=== PATIENT | male | born 1960 | race Caucasian/White ===

== ENCOUNTER 2020-04-10 08:42 | Inpatient (IN) | payer SELFPAY ==
[2020-04-10] VITALS (10 sets, daily range): BP systolic 110–153; BP diastolic 73–103; PULSE 79–103; RESP 16–24; TEMP 36.6–36.9; O2SAT 92–99; BMI 33.5
--- NOTE | 2020-04-10 08:53 | W.ED.SOB ---
HPI - SOB/Dyspnea General: Chief Complaint: Shortness of Breath/Dyspnea Stated Complaint: chest pain Time Seen by Provider: 04/10/20 08:46 History of Present Illness: HPI Narrative: Patient states he began to become severely shortness of breath approximately 4:00 this morning. Patient states she has no known history of COPD or congestive heart failure but that episodes like this happen frequently, most often in conjunction with weather changes. MD elicited complaint: shortness of breath Onset (ago): hour(s) Timing: constant and progressively worsening Severity: severe Exacerbating factors: lying flat and exertion Relieving factors: nothing Review of Systems General: Reports: 10 or more systems reviewed and unremarkable except in HPI and below Resp: Reports: dyspnea PFSH ED PFSH: Social History Smoking and tobacco status: never smoked Physical Exam Const: COMMON NORMALS: patient oriented x3 and alert HENMT: COMMON NORMALS: normocephalic and atraumatic HEAD & SCALP: normocephalic and atraumatic Neck/C-Spine: COMMON NORMALS: no meningeal signs and no JVD Resp: COMMON NORMALS: normal respiratory effort EFFORT & INSPECTION: Yes respiratory distress, No retractions and No uses accessory muscles AUSCULTATION: rales Cardio: COMMON NORMALS: no JVD, regular rate and regular rhythm RATE: regular rate RHYTHM: regular rhythm GI: COMMON NORMALS: Normal to inspection, nondistended, normoactive bowel sounds present Extremity: COMMON NORMALS: normal to inspection and full ROM GENERAL: Yes edema Neuro: COMMON NORMALS: patient oriented x3 SENSORIUM/ORIENTATION: Yes alert MENINGEAL SIGNS: Yes no meningeal signs Skin: COMMON NORMALS: no rashes or lesions noted, no jaundice and no mottling GENERAL SKIN EXAM: no rashes or lesions noted Course Vital Signs: Vital signs: Vital Signs Pulse Rate 89 04/10/20 10:06 Respiratory Rate 16 04/10/20 10:06 Blood Pressure 148/98 04/10/20 10:06 Pulse Oximetry 94 04/10/20 10:06 MDM - SOB/Dyspnea Lab Data: Labs: Lab Results 04/10/20 04/10/20 04/10/20 Range/Units 09:00 09:00 09:00 WBC 9.0 (4.0-10.0) 10^3/ uL RBC 4.63 (4.1-5.3) 10^6/u L Hgb 13.1 (11.7-16.6) g/dL Hct 41.0 L (42.0-52.0) % MCV 88.6 (80-94) fL MCH 28.3 (28.0-34.0) pg MCHC 32.0 (30.0-36.0) g/dL RDW 15.4 H (12.1-15.1) % Plt Count 315 (130-400) 10^3/c mm MPV 10.4 (7.4-10.4) fL Neut % (Auto) 74.2 % Lymph % (Auto) 18.3 % [place] % (Auto) 4.9 % Eos % (Auto) 2.1 % Baso % (Auto) 0.3 % Neut # (Auto) 6.6 (1.8-7.7) 10^3/u L Lymph # (Auto) 1.6 (0.8-4.8) 10^3/u L [place] # (Auto) 0.4 (0.2-0.9) 10^3/u L Eos # (Auto) 0.2 (0.0-0.8) 10^3/u L Baso # (Auto) 0.0 (0.0-0.1) 10^3/u L Nucleated RBC % (a uto) 0 % Nucleated RBCs # 0.0 /100WBC Sodium 143 (136-145) mmol/L Potassium 4.0 (3.5-5.1) mmol/L Chloride 107 (98-107) mmol/L Carbon Dioxide 22 (22-29) mmol/L Anion Gap 18.0 (5-19) BUN 19 (6-20) mg/dL Creatinine 1.3 H (0.7-1.2) mg/dL GFR Calculation 56.7 L (90-130) mL/min Glucose 105 (65-115) mg/dL Calculated Osmolal ity 293 (285-295) mOsm/k g Lactic Acid 1.1 (0.5-2.2) mmol/L Calcium 9.6 (8.5-10.5) mg/dL Total Bilirubin 2.2 H (0.15-1.2) mg/dL AST 19 (0-40) U/L ALT 19 (0-41) U/L Alkaline Phosphata se 86 (40-130) IU/L Troponin T Baselin e (0-15) ng/mL Troponin T 120 Min [place] (0-15) ng/mL NT-Pro-B Natriuret Pep 1368 H (0-125) pg/mL Total Protein 6.8 (6.6-8.7) g/dL Albumin 4.8 (3.5-5.2) g/dL Globulin 2.0 (1.3-4.6) g/dL 04/10/20 04/10/20 Range/Units 09:00 10:47 WBC (4.0-10.0) 10^3/ uL RBC (4.1-5.3) 10^6/u L Hgb (11.7-16.6) g/dL Hct (42.0-52.0) % MCV (80-94) fL MCH (28.0-34.0) pg MCHC (30.0-36.0) g/dL RDW (12.1-15.1) % Plt Count (130-400) 10^3/c mm MPV (7.4-10.4) fL Neut % (Auto) % Lymph % (Auto) % [place] % (Auto) % Eos % (Auto) % Baso % (Auto) % Neut # (Auto) (1.8-7.7) 10^3/u L Lymph # (Auto) (0.8-4.8) 10^3/u L [place] # (Auto) (0.2-0.9) 10^3/u L Eos # (Auto) (0.0-0.8) 10^3/u L Baso # (Auto) (0.0-0.1) 10^3/u L Nucleated RBC % (a uto) % Nucleated RBCs # /100WBC Sodium (136-145) mmol/L Potassium (3.5-5.1) mmol/L Chloride (98-107) mmol/L Carbon Dioxide (22-29) mmol/L Anion Gap (5-19) BUN (6-20) mg/dL Creatinine (0.7-1.2) mg/dL GFR Calculation (90-130) mL/min Glucose (65-115) mg/dL Calculated Osmolal ity (285-295) mOsm/k g Lactic Acid (0.5-2.2) mmol/L Calcium (8.5-10.5) mg/dL Total Bilirubin (0.15-1.2) mg/dL AST (0-40) U/L ALT (0-41) U/L Alkaline Phosphata se (40-130) IU/L Troponin T Baselin e 27 H (0-15) ng/mL Troponin T 120 Min [place] 20.06 H (0-15) ng/mL NT-Pro-B Natriuret Pep (0-125) pg/mL Total Protein (6.6-8.7) g/dL Albumin (3.5-5.2) g/dL Globulin (1.3-4.6) g/dL Discharge Plan Discharge Patient Disposition: Admitted As Inpatient Clinical Impression: Acute exacerbation of chronic obstructive airways disease Congestive heart failure Qualifiers: Heart failure type: unspecified Heart failure chronicity: acute on chronic Qualified Code(s): I50.9 - Heart failure, unspecified Condition: Fair Referrals: Jered Tejeda MD [Family Provider] - Coding Level of Care Code ED 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
--- NOTE | 2020-04-10 08:58 | XR_ITS ---
WS: [id number] PORTABLE CHEST HISTORY: sob COMPARISON: 04/28/2019 Very slight hyperexpansion of the lungs. Better aeration as compared to the prior study. RIGHT hemidi aphragm is less elevated. There is very minimal pulmonary congestion as compared to the prior study. Small LEFT pleural effusion. Cardiac size: Mildly enlarged cardiac silhouette. Mediastinum/Aorta: Normal mediastinum. No osseous abnormality seen. XR/XR chest 1V portable [id number] IMPRESSION: 1. Development of very minimal pulmonary congestion and cardiomegaly. 2. Small LEFT pleural effusion effusion.
--- NOTE | 2020-04-10 08:59 | ECG_ITS ---
Measurements Intervals [place] Rate: 98 P: 42 NM: 205 QRS: 36 QRSD: 125 T: 67 QT: 359 QTc: 460 SINUS RHYTHM INDETERMINATE AXIS MODERATE INTRAVENTRICULAR CONDUCTION DELAY [110+ ms QRS DURATION] Compared to ECG 04/28/2019 14:56:13 Indeterminate axis now present Intraventricular conduction delay now present Sinus bradycardia no longer present Atrial abnormality no longer present Myocardial infarct finding no longer present Electronically Signed On 04-10-2020 22:00:19 CDT by Valentine Grubbs M.D. [id number]
[2020-04-10] MEDS: ipratropium-albuterol 3 mL Neb INHALATION (09:09)
[2020-04-10 09:11] LABS: Basophils % 0.3 %; Eosinophils # 0.2 10^3/uL (0.0-0.8); Eosinophils % 2.1 %; Hemoglobin 13.1 g/dL (11.7-16.6); Lymphocytes # 1.6 10^3/uL (0.8-4.8); Lymphocytes % 18.3 %; Mean Corpuscular Hemoglobin 28.3 pg (28.0-34.0); Mean Corpuscular Volume 88.6 fL (80-94); Mean Platelet Volume 10.4 fL (7.4-10.4); Monocytes # 0.4 10^3/uL (0.2-0.9); Monocytes % 4.9 %; Neutrophils # 6.6 10^3/uL (1.8-7.7); Neutrophils % 74.2 %; Nucleated Red Blood Cells % 0 %; Platelet Count 315 10^3/cmm (130-400); Red Blood Count 4.63 10^6/uL (4.1-5.3); Red Cell Distribution Width 15.4 % (12.1-15.1)
[2020-04-10 09:27] LABS: Lactic Sepsis W/Reflex 1.1 mmol/L (0.5-2.2)
[2020-04-10 09:30] LABS: Troponin(5th) Baseline 27 ng/mL (0-15)
[2020-04-10 09:39] LABS: Alanine Aminotransferase 19 U/L (0-41); Albumin Level 4.8 g/dL (3.5-5.2); Alkaline Phosphatase 86 IU/L (40-130); Aspartate Amino Transferase 19 U/L (0-40); Blood Urea Nitrogen 19 mg/dL (6-20); Calcium 9.6 mg/dL (8.5-10.5); Carbon Dioxide 22 mmol/L (22-29); Chloride 107 mmol/L (98-107); Glomerular Filtration Rate 56.7 mL/min (90-130); Glucose 105 mg/dL (65-115); NT Pro B Type Natriuretic Pept 1368 pg/mL (0-125); Osmolality Calculated 293 mOsm/kg (285-295); Sodium 143 mmol/L (136-145); Total Bilirubin 2.2 mg/dL (0.15-1.2); Total Protein 6.8 g/dL (6.6-8.7)
--- NOTE | 2020-04-10 10:08 | PC.NURSE ---
NO ACUTE DISTRESS, LOWERED HEAD OF BED. DENIES ANY WANTS OR NEEDS. CONTINUE TO MONITOR.
--- NOTE | 2020-04-10 10:59 | ECG_ITS ---
Measurements Intervals [place] Rate: 87 P: 57 [place]: 203 QRS: 253 QRSD: 124 T: 69 QT: 367 QTc: 443 SINUS RHYTHM WITH FIRST DEGREE AV BLOCK POSSIBLE LEFT ATRIAL ENLARGEMENT [-0.1mV P WAVE IN V1/V2] INDETERMINATE AXIS MODERATE INTRAVENTRICULAR CONDUCTION DELAY [110+ ms QRS DURATION] Compared to ECG 04/28/2019 14:56:13 Indeterminate axis now present Intraventricular conduction delay now present Sinus bradycardia no longer present Myocardial infarct finding no longer present Electronically Signed On 04-10-2020 22:10:59 CDT by Valentine Grubbs M.D. [id number]
[2020-04-10 11:15] LABS: Troponin 5 2HR 20.06 ng/mL (0-15)
[2020-04-10 11:16] LABS: Troponin 5 2HR Delta -6.94 ABS# (0-10)
--- NOTE | 2020-04-10 13:13 | US_ITS ---
WS: [id number] RIGHT UPPER QUADRANT ULTRASOUND HISTORY: hyperbilirubinemia COMPARISON: None available. Liver: 11.5 cm in length. Normal size and echogenicity with no intrahepatic dilatation. No mass. Gallbladder: Normally distended gallbladder with no stones or wall thickening. CBD: 0.5 cm Pancreas: Not visualized. Right kidney: 11.1 cm in length. Normal echogenicity with no mass or hydronephrosis. Aorta and IVC: Unremarkable. No ascites. US/US gall bladder [id number] IMPRESSION: 1. Normal gallbladder. 2. Pancreas not visualized.
--- NOTE | 2020-04-10 13:13 | USCV_ITS ---
Lalo Denson Age: 60 Gender: M : 1960 Exam Date: 04/10/2020 14:32 Ordering Phys: Elvia Rowan DO Technologist: Heraclio Salgado [place]am Location[place] [facility] [place]ication: CHEST PAIN BP: 139 / 73 HR: 94 Rhythm: Sinus Technical Quality: Fair MEASUREMENTS (Male / Female) Normal Values 2D ECHO LV Diastolic Diameter PLAX 7.8 cm 4.2 - 5.9 / 3.9 - 5.3 cm LV Systolic Diameter PLAX 6.9 cm IVS Diastolic Thickness 1.1 cm 0.6 - 1.0 / 0.6 - 0.9 cm IVS Systolic Thickness 1.3 cm LVPW Diastolic Thickness 0.8 cm 0.6 - 1.0 / 0.6 - 0.9 cm LVPW Systolic Thickness 1.2 cm LVOT Diameter 2.7 cm LV Ejection Fraction 2D Teich 24.2 % LV Ejection Fraction MOD 2C 41.9 % LV Ejection Fraction 2C AL 42.2 % LA Diameter 4.9 cm LA Width 4.7 cm LA Height 5.9 cm RA Width 5.0 cm RA Height 5.3 cm M-MODE Aortic Annulus Diameter 3.5 cm LA Ao Ratio MM 1.4 MV E Point Septal Separation 2.7 cm DOPPLER AV Peak Velocity 106.0 cm/s LVOT Peak Velocity 99.0 cm/s AV Area Cont Eq vti 4.9 cm squared AV Area Cont Eq pk 5.3 cm squared MV Area PHT 5.0 cm squared Mitral E to A Ratio 1.6 MV E' Velocity 10.0 cm/s Mitral E to MV E' Ratio 13.0 Mitral E to LV E' Lateral Ratio 9.8 Mitral E to LV E' Septal Ratio 19.5 TR Peak Velocity 121.0 cm/s TR Peak Gradient 5.9 mmHg TV Peak E Velocity 95.0 cm/s FINDINGS Left Ventricle Severely increased left ventricular cavity size. Severely decreased left ventricular systolic function. Left ventricular ejection fraction is estimated at 15 %. Severe global hypokinesis. Abnormal diastolic function. Abnormal septal motion consistent with conduction abnormality. Right Ventricle Normal right ventricular size and systolic function. Right Atrium Mildly increased right atrial size. Left Atrium Moderately increased left atrial size. Mitral Valve Mildly thickened mitral valve. Moderate mitral valve regurgitation. Aortic Valve Structurally normal trileaflet aortic valve. No aortic valve stenosis. No aortic valve regurgitation. Tricuspid Valve Structurally normal tricuspid valve. Pulmonic Valve Pulmonic valve not well visualized. Pericardium No pericardial effusion. Aorta Normal size aortic root and proximal ascending aorta. CONCLUSIONS 1. Severely increased left ventricular cavity size. Severely decreased left ventricular systolic function. Left ventricular ejection fraction is estimated at 15 %. Severe global hypokinesis. Abnormal diastolic function. 2. Normal right ventricular size and systolic function. 3. Moderately increased left atrial size. 4. Moderate mitral valve regurgitation. 5. No prior similar studies to compare. Valentine Grubbs MD (Electronically Signed) Final Date: 10 Apr 2020 17:43 S
--- NOTE | 2020-04-10 13:17 | PM.HP ---
Providers/Chief Complaint Admitting Physician: Elvia Rowan DO Primary Care Provider: None Chief Complaint: chest pain History of Present Illness Lalo Denson is a 60 year old male with a past medical history of systolic congestive heart failure that presented to the emergency department today for increasing shortness of breath. Patient reports that he was previously seen at [facility] in [place] and all of his care was at their facility. He stated that him and his moved here in 2017 and he has not established care with a primary care provider or micropaleontologist since that time. He reported that in 2013 he had a heart attack and required 2 stents to be placed. He stated that after that he had an ejection fraction of around 16%. He was followed closely by cardiology and also at the congestive heart failure clinic in [place]. He stated that he was on Entresto along with Coreg and Lasix and 2 other medications that he cannot recall at this time. He stated that he had medication refills until October 2019 at which time he ran out of medications. Patient has been off of medications for the past 6 months. He reported that he intermittently has shortness of breath and feels fluid overloaded, came into the ER today due to similar concerns. He stated that he has been out of insurance so therefore cannot fill any of his medications or establish care. Patient was seen and evaluated in the emergency department due to concern for fluid overloaded he was admitted for further evaluation and treatment. Review of Systems Const: Denies: fever(s) or chills Eyes: Denies: change in vision ENMT: Denies: nasal congestion Card: Denies: chest pain, palpitations or edema Resp: Reports: dyspnea and non-productive cough; Denies: productive cough or hemoptysis GI: Denies: abdominal pain, nausea, vomiting, diarrhea, constipation, hematochezia or melena : Denies: dysuria or hematuria Musc: Denies: extremity pain or muscle cramps Skin/Breast: Denies: rash or new lesions Neuro: Denies: headache(s) or dizziness Psych: Denies: anxiety or depression Endo: Denies: polyuria or hot flashes [place]/Lymph: Denies: easy bruising or easy bleeding Medications/Allergies Home Medications Medication Instructions Recorded Confirmed Last Taken Type Vitamin D3 1 cap PO DAILY 04/10/20 04/10/20 04/09/20 History aspirin-caffeine [BC Pain Relief] 1 ea PO BID PRN 04/10/20 04/10/20 04/09/20 10:00 History lysine [L-Lysine] 1,000 mg PO Q6H PRN 04/10/20 04/10/20 Unknown History magnesium salicylate-caffeine 1 tab PO DAILY 04/10/20 04/10/20 04/09/20 History [Diurex] multivitamin [Multiple Vitamins] 1 tab PO DAILY 04/10/20 04/10/20 04/09/20 History Allergies Allergy/AdvReac Type Severity Reaction Status Date / Time clindamycin Allergy ALGY-Rash Verified 04/10/20 09:01 Penicillins Allergy ALGY-Hives Verified 04/10/20 09:01 Sulfa (Sulfonamide Allergy ALGY-Rash Verified 04/10/20 09:01 Antibiotics) PFSH Acute PFSH: Medical History (Updated 04/10/20 @ 13:21 by Elvia Rowan DO) Coronary artery disease History of coronary angiogram With stent placement x2 in February 2014. 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 Vitals/I&O/Wt Last Vital Signs Temp 98.5 F 04/10/20 13:07 Pulse 81 04/10/20 13:07 Resp 18 04/10/20 13:07 BP 152/90 04/10/20 13:07 Pulse Ox 92 04/10/20 13:07 Weight last 48 hrs Weight 108.862 kg Physical Exam Const: COMMON NORMALS: patient oriented x3 and alert GENERAL APPEARANCE: cooperative ORIENTATION/CONSCIOUSNESS: Yes awake, Yes oriented to person, Yes oriented to place and Yes oriented to time HENMT: COMMON NORMALS: normocephalic and atraumatic HEAD & SCALP: normocephalic and atraumatic Eye: COMMON NORMALS: Equal, round and reactive pupils present PUPIL: Yes Equal, round and reactive pupils present Neck/C-Spine: COMMON NORMALS: supple GENERAL: Yes normal visual inspection Resp: EFFORT & INSPECTION: Yes able to speak in complete sentences AUSCULTATION: crackles Laterality: bilateral, no rhonchi and no wheezes Cardio: COMMON NORMALS: regular rate, regular rhythm and No murmurs present (Cardio) RATE: regular rate RHYTHM: regular rhythm GI: COMMON NORMALS: Soft to palpation and non-tender INSPECTION: No abdominal distension AUSCULTATION: Yes normoactive bowel sounds PALPATION: Yes Soft to palpation Extremity: COMMON NORMALS: no clubbing, cyanosis or edema and no calf tenderness Neuro: COMMON NORMALS: patient oriented x3, CN's II-XII intact bilaterally, moves all extremities and no focal motor deficits SENSORIUM/ORIENTATION: Yes alert, Yes oriented to person, Yes oriented to place and Yes oriented to time SPEECH: speech normal Psych: COMMON NORMALS: mental status grossly normal and cooperative Skin: COMMON NORMALS: no rashes or lesions noted GENERAL SKIN EXAM: no rashes or lesions noted Data : 04/10/20 09:00 04/10/20 09:00 Micro: Microbiology 04/10/20 09:05 Blood Culture - Preliminary Blood SPECIMEN COLLECTED 04/10/20 09:00 Blood Culture - Preliminary Blood SPECIMEN COLLECTED CXR: I personally reviewed and interpreted this imaging study as follows: Radiologist's impression: IMPRESSION: 1. Development of very minimal pulmonary congestion and cardiomegaly. 2. Small LEFT pleural effusion effusion. A&P Assessment and plan (1) Acute exacerbation of CHF (congestive heart failure): Acute exacerbation of systolic CHF Patient has been followed at the cardiology and congestive heart failure clinic at [facility] in [facility]. Has ran out of prescription refills and has not had any refill since October 2019 Patient acutely fluid overloaded at this time placed on observation for diuresis Monitor strict intake and output as well as daily weights Previously reported that his echocardiogram showed an LVEF of 16% but it was up to 35% on his most recent test which was a couple of years ago We will repeat echocardiogram and obtain record request from out lying facility Previously on Entresto, does not have insurance currently therefore will start on low-dose ROB inhibitor, Coreg, Lasix, consider addition of Aldactone if needed Status: Acute (2) Systolic congestive heart failure: Plan as above Status: Acute (3) Coronary artery disease: With a history of stent x2, currently only taking aspirin at home Telemetry with serial EKG and troponin We will continue aspirin, start on statin, continue on Coreg, continue ORB inhibitor Lipid panel in the morning Status: Acute (4) Hyperbilirubinemia: Patient has had hyperbilirubinemia in the past, however denies any cause. Will check hepatitis panel. AST and ALT are within normal limits. Will check direct and indirect bilirubin. Discussed this with patient and will further evaluate with right upper quadrant ultrasound. Patient does not have any tenderness in the abdomen, no symptoms. He does have a mother who had cirrhosis from Kandi's disease Status: Acute Additional A&P Information Incidental finding on CT head performed on 04/2019: Incompletely visualized right intraparotid 14 mm nodule or lymph node. Significance uncertain. Consider follow-up nonemergent CT soft tissue neck with contrast for further evaluation. Recommend close outpatient follow-up with primary care provider DVT prophylaxis: Lovenox Diet: Cardiac, 2 g sodium restriction CODE STATUS: Full code Attestations Medical Necessity Statement*: Observation due to concern for CHF exacerbation and hyperbilirubinemia. Expected stay less than 2 midnights Coding Level of Care Code Acute Data Migration Lead for Chg Fwd Exam Comprehensive Diagnoses Acute exacerbation of CHF (congestive heart failure) I50.9 Systolic congestive heart failure I50.20 Coronary artery disease I25.10 Hyperbilirubinemia E80.6
[2020-04-10] MEDS: enoxaparin 40 mg/0.4 mL Syringe SUBCUT (13:31)
[2020-04-10] MEDS: lisinopril 2.5 mg Tablet PO (13:31)
[2020-04-10 14:06] LABS: Hepatitis A Antibody IgM Non-Reactive (Nonreactive); Hepatitis B Core AB, Total Non-Reactive (Nonreactive); Hepatitis B Surface AB 3.5 (0-8.5); Hepatitis B Surface Antigen Non-Reactive (Nonreactive); Hepatitis C Virus Antibody Non-Reactive (Nonreactive)
[2020-04-10 14:09] LABS: Total Bilirubin 1.9 mg/dL (0.15-1.2)
[2020-04-10 14:19] LABS: Thyroid Stimulating Hormone 2.15 uIU/mL (0.27-4.20)
--- NOTE | 2020-04-10 14:59 | ECG_ITS ---
Measurements Intervals [place] Rate: 87 P: 36 [place]: 212 QRS: 112 QRSD: 121 T: 69 QT: 374 QTc: 450 SINUS RHYTHM WITH FIRST DEGREE AV BLOCK POSSIBLE LEFT ATRIAL ENLARGEMENT [-0.1mV P WAVE IN V1/V2] INDETERMINATE AXIS MODERATE INTRAVENTRICULAR CONDUCTION DELAY [110+ ms QRS DURATION] Compared to ECG 04/28/2019 14:56:13 First degree AV block now present Indeterminate axis now present Intraventricular conduction delay now present Sinus bradycardia no longer present Myocardial infarct finding no longer present Electronically Signed On 04-10-2020 22:12:22 CDT by Valentine Grubbs M.D. [id number]
[2020-04-10] MEDS: FUROsemide 10 mg/mL SDV 4mL 40 MG IVP (15:16)
[2020-04-10 16:19] LABS: Troponin 5 6HR 22.51 ng/mL (0-15)
[2020-04-10 16:31] LABS: Troponin 5 6HR Delta -4.49 ng/L (0-12)
[2020-04-10] MEDS: carvedilol 3.125 mg Tablet PO (17:21)
[2020-04-10] MEDS: acetaminophen 325 mg Tablet 650 MG PO (21:23)
[2020-04-11 04:00] VITALS: BP 119/79; PULSE 68; RESP 16; TEMP 36.4; O2SAT 92
[2020-04-11 05:44] LABS: Alanine Aminotransferase 17 U/L (0-41); Albumin Level 4.1 g/dL (3.5-5.2); Alkaline Phosphatase 73 IU/L (40-130); Anion Gap 18.2 (5-19); Aspartate Amino Transferase 17 U/L (0-40); Blood Urea Nitrogen 17 mg/dL (6-20); Calcium 8.7 mg/dL (8.5-10.5); Carbon Dioxide 22 mmol/L (22-29); Chloride 104 mmol/L (98-107); Globulin 2.3 g/dL (1.3-4.6); Glomerular Filtration Rate 62.2 mL/min (90-130); Glucose 98 mg/dL (65-115); Osmolality Calculated 288 mOsm/kg (285-295); Potassium 3.2 mmol/L (3.5-5.1); Sodium 141 mmol/L (136-145); Total Bilirubin 2.2 mg/dL (0.15-1.2); Total Protein 6.4 g/dL (6.6-8.7)
[2020-04-11 05:52] LABS: Chol HDL Ratio 5.26 mg/dL (1.0-5.00); Cholesterol 200 mg/dL (0-200); HDL Cholesterol 38 mg/dL (60-100); LDL Cholesterol Calculated 136 mg/dL (50-129); LDL HDL Ratio 3.58 RATIO (0.00-3.22); Triglycerides 132 mg/dL (0-150)
[2020-04-11] MEDS: FUROsemide 10 mg/mL SDV 4mL 40 MG IVP (05:52)
[2020-04-11 07:17] VITALS: BP 109/70; PULSE 76; RESP 20; TEMP 36.4; O2SAT 92
[2020-04-11] MEDS: carvedilol 3.125 mg Tablet PO ×2 (09:21→17:14)
[2020-04-11] MEDS: atorvastatin 40 mg Tablet PO (09:21)
[2020-04-11] MEDS: lisinopril 2.5 mg Tablet PO (09:21)
--- NOTE | 2020-04-11 09:51 | PM.CONSULT ---
Providers/Reason For Consult Consulting Physican/Specialty*: Cardiovascular medicine Reason for Consult*: Congestive heart failure Attending Physician: Elvia Rowan DO Primary Care Provider: Jered Tejeda MD History of Present Illness History of Present Illness Lalo Denson is a 60 year old male who has a history of a cardiomyopathy with a very low ejection fraction. He moved here from [facility] where he had been followed by cardiology service including a congestive heart failure clinic. He moved here in 2016. He is not seen a physician since. He stopped his medications about 6 months ago because he said that he did not have any insurance. He tells me that when he was first diagnosed with a cardiomyopathy was put on lisinopril which short circuited my system . This had to be stopped for some reason. He saw an ad on TV for Entresto and asked the physicians about it and was ultimately put on this drug. He also tells me that he had 2 blood clots which stopped my heart in 2013. He said that this was followed by 2 stents being placed. Over the last several weeks he has noticed an increase in pressure in his abdomen and describes this as fluid collection. He came into the hospital yesterday. He is being diuresed and feels better. His creatinine was 1.5 when he came in and is now down to 1.2. His glomerular filtration rate was 45 mL/min and is now up to 62 mL/min. His creatinine and glomerular filtration rate has improved since he was admitted. His echo shows a global hypokinetic ventricle with an ejection fraction of 15%. Currently he is on Lovenox low-dose, IV Lasix, aspirin, low-dose Coreg and lisinopril with potassium supplementation. Review of Systems General: Reports: 10 or more systems reviewed and unremarkable except in HPI and below Meds/Allergies Home Medications and Allergies Home Medications Medication Instructions Recorded Confirmed Last Taken Type Vitamin D3 1 cap PO DAILY 04/10/20 04/10/20 04/09/20 History aspirin-caffeine [BC Pain Relief] 1 ea PO BID PRN 04/10/20 04/10/20 04/09/20 10:00 History lysine [L-Lysine] 1,000 mg PO Q6H PRN 04/10/20 04/10/20 Unknown History magnesium salicylate-caffeine 1 tab PO DAILY 04/10/20 04/10/20 04/09/20 History [Diurex] multivitamin [Multiple Vitamins] 1 tab PO DAILY 04/10/20 04/10/20 04/09/20 History Allergies Allergy/AdvReac Type Severity Reaction Status Date / Time clindamycin Allergy ALGY-Rash Verified 04/10/20 09:01 Penicillins Allergy ALGY-Hives Verified 04/10/20 09:01 Sulfa (Sulfonamide Allergy ALGY-Rash Verified 04/10/20 09:01 Antibiotics) Current Medications Current Medications Generic Name Dose Route Start Last Admin Trade Name Freq PRN Reason Stop Dose Admin Acetaminophen 650 mg 04/10/20 13:07 04/10/20 21:23 Tylenol PO 650 mg Q6H PRN Administration Mild/Mod Pain Or Temp >/= 101 Atorvastatin Calcium 40 mg 04/11/20 09:00 04/11/20 09:21 Lipitor PO 40 mg DAILY MORGAN Administration Carvedilol 3.125 mg 04/10/20 18:00 04/11/20 09:21 Coreg PO 3.125 mg BID MORGAN Administration Enoxaparin Sodium 40 mg 04/10/20 13:15 04/10/20 13:31 Lovenox SUBCUT 40 mg Q24H MORGAN Administration Furosemide 40 mg 04/11/20 06:00 04/11/20 05:52 Lasix IVP 40 mg Q24H MORGAN Administration Lisinopril 2.5 mg 04/10/20 13:20 04/11/20 09:21 Prinivil PO 2.5 mg DAILY MORGAN Administration Potassium Chloride 20 meq 04/11/20 09:00 04/11/20 09:21 Klor-Con 10 PO 20 meq DAILY MORGAN Administration PFSH Acute PFSH: Medical History (Updated 04/11/20 @ 09:56 by Leon Umaña MD) Chronic kidney disease (CKD) Coronary artery disease History of coronary angiogram With stent placement x2 in February 2014. This was performed at [facility] in [place] Nonischemic cardiomyopathy Systolic congestive heart failure Family History (Updated 04/10/20 @ 13:22 by Elvia Rowan DO) Father CAD (coronary artery disease) Congestive heart failure Mother Cirrhosis Kandi's disease Social History (Updated 04/10/20 @ 13:22 by Elvia Rowan DO) Smoking and tobacco status: never smoked Alcohol intake: current Alcohol intake frequency: holidays/special occasions only Substance/Drug Use: never Household members: spouse Marital status: Vitals/I&O/Wt Last Vital Signs Temp 97.5 F L 04/11/20 07:17 Pulse 76 04/11/20 07:17 Resp 20 H 04/11/20 07:17 BP 109/70 04/11/20 07:17 Pulse Ox 92 04/11/20 07:17 04/10/20 04/11/20 04/11/20 22:59 06:59 14:59 Intake Total 240 / 240 480 / 480 Output Total 1700 / 1700 0 / 1700 Balance -1460 / -1460 0 / -1460 480 / 480 Weight last 48 hrs Weight 255 lb 11.2 oz Weight 240 lb Physical Exam Narrative: EXAM NARRATIVE: GENERAL: In general he looks comfortable at rest HEENT: Exam within normal limits. NECK: Supple without jugular vein distention. The carotid upstroke is normal without bruits. BACK: Exam normal. LUNGS: Clear. HEART: Regular rate and rhythm. ABDOMEN: Benign without organomegaly or tenderness. EXTREMITIES: No edema. NEUROLOGIC: Exam normal. SKIN: Unremarkable. Data Micro: Micro: Microbiology 04/10/20 09:05 Blood Culture - Pr eliminary Blood NEGATIVE TO LINDA E 04/10/20 09:00 Blood Culture - Pr eliminary Blood NEGATIVE TO LINDA E Other Data: Other data: EKG reveals sinus rhythm with an interventricular conduction delay and a left axis deviation. Gallbladder ultrasound normal. Echo reveals a global hypokinetic ventricle ejection fraction 15% with moderate mitral regurgitation. Total bilirubin 2.2. Troponins 26, 20 and 22. A&P Assessment and plan (1) Hyperbilirubinemia: Status: Acute (2) Coronary artery disease: Status: Acute (3) Systolic congestive heart failure: Status: Acute (4) Acute exacerbation of CHF (congestive heart failure): Status: Acute (5) Chronic kidney disease (CKD): Status: Acute (6) Nonischemic cardiomyopathy: Status: Acute Additional A&P Information I do not think he is going to want to afford the Entresto. This is much more expensive than an ROB inhibitor or an angiotensin receptor gi. I think we should continue the medications as currently prescribed and also consider adding Aldactone. As it pertains to the cardiomyopathy this sounds more like a nonischemic cardiomyopathy than a ischemic cardiomyopathy. His ejection fraction is low and the hypokinesis is global instead of segmental. The hyperbilirubinemia may be related to passive congestion though his transaminases are not elevated. I do not think there is a need to work him up for ischemia. He is not having chest pain and his troponins are negative. I think this is a nonischemic global cardiomyopathy with heart failure. I brought up the idea of a LifeVest. He has never heard of this. When I talked to him about it he declined. He had been spoken to about a implantable defibrillator back in [place] but I do not think the discussion went very far. He seems doubtful about putting 1 of those in here due to the expense. So for now we will plan on diuresis and optimization of his medications then as an outpatient he can try to get approval for Entresto from the company and we can have another discussion with him about LifeVest's and implantable defibrillators. Consult Attestations Medical Necessity Statement: Not applicable Coding Level of Care Code New Pt Acute Business Continuity Management Director for Chg Fwd Patient Type New Medical Decision Making Moderate Complexity Diagnoses Hyperbilirubinemia E80.6 Coronary artery disease I25.10 Systolic congestive heart failure I50.20 Acute exacerbation of CHF (congestive heart failure) I50.9 Chronic kidney disease (CKD) N18.9 Nonischemic cardiomyopathy I42.8
--- NOTE | 2020-04-11 09:53 | PM.PN ---
Subjective Subjective: Interval history: Patient awake in bed at time of exam today. He reported improved shortness of breath. Discussed with patient echocardiogram showing LVEF of 15% and recommended close follow-up with cardiology and cardiology consultation. Discussed with patient due to decreased LVEF the possibility of a LifeVest or defibrillator, patient declined at this time. Patient agreed to cardiology consultation Vitals/I&O/Wt Last Vital Signs Temp 97.5 F L 04/11/20 07:17 Pulse 76 04/11/20 07:17 Resp 20 H 04/11/20 07:17 BP 109/70 04/11/20 07:17 Pulse Ox 92 04/11/20 07:17 04/10/20 04/11/20 04/11/20 22:59 06:59 14:59 Intake Total 240 / 240 480 / 480 Output Total 1700 / 1700 0 / 1700 Balance -1460 / -1460 0 / -1460 480 / 480 Weight last 48 hrs Weight 115.984 kg Weight 108.862 kg Physical Exam Const: COMMON NORMALS: patient oriented x3 and alert GENERAL APPEARANCE: cooperative ORIENTATION/CONSCIOUSNESS: Yes awake, Yes oriented to person, Yes oriented to place and Yes oriented to time HENMT: COMMON NORMALS: normocephalic and atraumatic HEAD & SCALP: normocephalic and atraumatic Eye: COMMON NORMALS: Equal, round and reactive pupils present PUPIL: Yes Equal, round and reactive pupils present Neck/C-Spine: COMMON NORMALS: supple GENERAL: Yes normal visual inspection Resp: EFFORT & INSPECTION: Yes able to speak in complete sentences AUSCULTATION: crackles Laterality: bilateral, no rhonchi and no wheezes Cardio: COMMON NORMALS: regular rate, regular rhythm and No murmurs present (Cardio) RATE: regular rate RHYTHM: regular rhythm GI: COMMON NORMALS: Soft to palpation and non-tender INSPECTION: No abdominal distension AUSCULTATION: Yes normoactive bowel sounds PALPATION: Yes Soft to palpation Extremity: COMMON NORMALS: no clubbing, cyanosis or edema and no calf tenderness Neuro: COMMON NORMALS: patient oriented x3, CN's II-XII intact bilaterally, moves all extremities and no focal motor deficits SENSORIUM/ORIENTATION: Yes alert, Yes oriented to person, Yes oriented to place and Yes oriented to time SPEECH: speech normal Psych: COMMON NORMALS: mental status grossly normal and cooperative Skin: COMMON NORMALS: no rashes or lesions noted GENERAL SKIN EXAM: no rashes or lesions noted Data : 04/10/20 09:00 04/11/20 04:44 Micro: Microbiology 04/10/20 09:05 Blood Culture - Preliminary Blood NEGATIVE TO DATE 04/10/20 09:00 Blood Culture - Preliminary Blood NEGATIVE TO DATE A&P Assessment and plan (1) Acute exacerbation of CHF (congestive heart failure): Acute exacerbation of systolic CHF Echocardiogram from this admission shows LVEF of 15% Cardiology, Dr. Umaña, consulted. Appreciate recommendations and assistance in patient's care. Patient wishes to be started back on Entresto as he had good luck with this in the past. Continue with Coreg, IV Lasix, aspirin, statin, started on low-dose ROB inhibitor at this time and will start on Aldactone We will follow-up with cardiology recommendations with the possibility of starting Entresto Status: Acute (2) Systolic congestive heart failure: Plan as above Status: Acute (3) Coronary artery disease: With a history of stent x2, currently only taking aspirin at home Telemetry We will continue aspirin, start on statin, continue on Coreg, continue ROB inhibitor Status: Acute (4) Hyperbilirubinemia: Patient has had hyperbilirubinemia in the past, however denies any cause. Hepatitis panel negative Right upper quadrant ultrasound shows normal gallbladder, pancreas not well visualized We will continue to require outpatient follow-up after discharge Status: Acute Additional A&P Information Incidental finding on CT head performed on 04/2019: Incompletely visualized right intraparotid 14 mm nodule or lymph node. Significance uncertain. Consider follow-up nonemergent CT soft tissue neck with contrast for further evaluation. Recommend close outpatient follow-up with primary care provider DVT prophylaxis: Lovenox Diet: Cardiac, 2 g sodium restriction CODE STATUS: Full code Attestations Medical Necessity Statement*: Further hospitalization due to CHF with severely diminished ejection fraction. Coding Level of Care Code Acute Harness Tier for Umberto Rose Diagnoses Acute exacerbation of CHF (congestive heart failure) I50.9 Systolic congestive heart failure I50.20 Coronary artery disease I25.10 Hyperbilirubinemia E80.6
[2020-04-11] MEDS: aspirin 81 mg EC Tablet PO (10:10)
--- NOTE | 2020-04-11 10:26 | PC.CHAP ---
Pastoral Care Encounter/Spiritual Assessment Type of Contact [] Declined chip separator visit [] Patient/Family/Request visit [] Outpatient visit [] Follow-up visit [] Physician referral [] Code/Alert [x] Routine visit [] Staff referral [] Actively dying [] Patient sleeping [] Family support [] [] Out of room [] Palliative care [] [x] Receiving care in room [] Pre-surgical visit [] Trauma [] Long length of stay [] ICU visit [] Other: Relational/Emotional Strength [] Patient feels connected with others/family/visitors/staff [] Distress [] Loneliness/isolation [] Abandonment Spirituality of Patient [] Person of Gem [] Attends Jehovah'S Witness of their Gem [] Believes in Prayer [] Reads Bible or Sabianist materials [] There are Spiritual issues to be addressed Manager Business Interventions [] Prayer [] Active listening [] Non-anxious presence [] Spiritual/emotional support [] Crisis/trauma care [] Spiritual counseling [] Bereavement support [] Provided bereavement packet [] Provided Bible/devotional materials [] Provided toy/stuffed animal, coloring book to patient or family member [] Provided Communion [] Anointing/[place] [] Salvation [x] Completed spiritual assessment [] Other: Impact on Illness or Injury [] Angry [] Fearful [] Anxious [] Often cries [] Exhaustion [] Unable to work [] Unable to attend lutheran [] Unable to walk/stand [] Unable to read [] Unable to drive [] Unable to eat/drink [] Unable to sleep [] Unable to be with family [] Patient intubated [] Other: Summary Time spent with patient
[2020-04-11 11:40] VITALS: BP 106/68; PULSE 72; RESP 18; TEMP 36.8; O2SAT 94
--- NOTE | 2020-04-11 11:45 | PC.NURSE ---
Dr Rowan said patient doesn't see [facility] and requested that he be removed from being listed as PCP. Utility Manager called admissions [phone], left message.
[2020-04-11] MEDS: spironolactone 25 mg Tablet 12.5 MG PO (12:31)
[2020-04-11] MEDS: enoxaparin 40 mg/0.4 mL Syringe SUBCUT (12:33)
--- NOTE | 2020-04-11 13:38 | PC.NURSE ---
called Admissions [phone] Tejeda removed as PCP. Left message.
--- NOTE | 2020-04-11 13:41 | PC.NURSE ---
Called Admissions [phone], admissions said Dr Tejeda will be removed from patient's PCP physician
[2020-04-11 15:26] VITALS: BP 110/70; PULSE 73; RESP 18; TEMP 36.5; O2SAT 95
[2020-04-11] MEDS: TRAMadol 50 mg Tablet PO (16:39)
[2020-04-11 20:00] VITALS: BP 124/83; PULSE 100; RESP 20; TEMP 36.9; O2SAT 93
[2020-04-11 23:56] VITALS: BP 114/75; PULSE 77; RESP 20; TEMP 36.9; O2SAT 98
[2020-04-12 04:00] VITALS: BP 98/67; PULSE 67; RESP 20; TEMP 36.6; O2SAT 95
[2020-04-12 05:19] VITALS: BP 92/62
[2020-04-12 07:36] VITALS: BP 121/85; PULSE 74; RESP 16; TEMP 36.6; O2SAT 96
[2020-04-12 08:20] LABS: Anion Gap 14.8 (5-19); Blood Urea Nitrogen 16 mg/dL (6-20); Calcium 9.1 mg/dL (8.5-10.5); Carbon Dioxide 24 mmol/L (22-29); Chloride 105 mmol/L (98-107); Glomerular Filtration Rate 68.8 mL/min (90-130); Glucose 104 mg/dL (65-115); Osmolality Calculated 287 mOsm/kg (285-295); Potassium 3.8 mmol/L (3.5-5.1); Sodium 140 mmol/L (136-145)
[2020-04-12] MEDS: lisinopril 2.5 mg Tablet PO (08:21)
[2020-04-12] MEDS: atorvastatin 40 mg Tablet PO (08:21)
[2020-04-12] MEDS: carvedilol 3.125 mg Tablet PO (08:21)
[2020-04-12] MEDS: aspirin 81 mg EC Tablet PO (08:21)
[2020-04-12] MEDS: spironolactone 25 mg Tablet 12.5 MG PO (08:21)
--- NOTE | 2020-04-12 10:29 | PM.PN ---
Subjective Subjective: Interval history: States that he feels better. The pressure in his upper abdomen and midepigastric area is now gone. He feels like he is back to normal. No chest pain Medications: Reviewed: Yes Vitals/I&O/Wt Last Vital Signs Temp 97.8 F 04/12/20 07:36 Pulse 74 04/12/20 07:36 Resp 16 04/12/20 07:36 BP 121/85 04/12/20 07:36 Pulse Ox 96 04/12/20 07:36 04/11/20 04/12/20 04/12/20 22:59 06:59 14:59 Intake Total 480 / 1200 240 / 1440 660 / 660 Balance 480 / 1200 240 / 1440 660 / 660 Weight last 48 hrs Weight 256 lb 1.6 oz Weight 255 lb 11.2 oz Physical Exam Narrative: EXAM NARRATIVE: GENERAL: Neuro he looks and feels well HEENT: Exam within normal limits. NECK: Supple without jugular vein distention. The carotid upstroke is normal without bruits. BACK: Exam normal. LUNGS: Clear. HEART: Regular rate and rhythm. ABDOMEN: Benign without organomegaly or tenderness. EXTREMITIES: No edema. NEUROLOGIC: Exam normal. SKIN: Unremarkable. Data : 04/10/20 09:00 04/12/20 07:52 Micro: Microbiology 04/10/20 09:05 Blood Culture - Preliminary Blood NEGATIVE TO DATE 04/10/20 09:00 Blood Culture - Preliminary Blood NEGATIVE TO DATE A&P Assessment and plan (1) Chronic kidney disease (CKD): Status: Acute (2) Nonischemic cardiomyopathy: Status: Acute (3) Hyperbilirubinemia: Status: Acute (4) Coronary artery disease: Status: Acute (5) Systolic congestive heart failure: Status: Acute (6) Acute exacerbation of CHF (congestive heart failure): Status: Acute Additional A&P Information I think he can safely go home today. He should go home on the medications currently prescribed to include Aldactone, potassium, lisinopril, Lipitor, Coreg, aspirin, Lasix 40 mg p.o. daily. We will work to try to get him back on Entresto. He obviously is uninsured and not able to pay for it. We will try to work that out as an outpatient. He should see us in 4 to 6 weeks as an outpatient. Attestations Medical Necessity Statement*: Not applicable Coding Level of Care Code Established Pt Acute Media Assistant for Chg Fwd Patient Type Established History Detailed Exam Detailed Medical Decision Making Moderate Complexity Diagnoses Chronic kidney disease (CKD) N18.9 Nonischemic cardiomyopathy I42.8 Hyperbilirubinemia E80.6 Coronary artery disease I25.10 Systolic congestive heart failure I50.20 Acute exacerbation of CHF (congestive heart failure) I50.9
--- NOTE | 2020-04-12 10:45 | P.DS_ITS ---
Discharge Providers Date of Admission: 04/11/20 12:09 Date of Discharge: April 12, 2020 Attending Provider at Admission: Elvia Rowan DO Attending Provider at Discharge: Elvia Rowan DO Diagnoses at Discharge Discharge Diagnosis (1) Chronic kidney disease (CKD): Status: Acute (2) Nonischemic cardiomyopathy: Status: Acute (3) Hyperbilirubinemia: Status: Acute (4) Coronary artery disease: Status: Acute (5) Systolic congestive heart failure: Status: Acute (6) Acute exacerbation of CHF (congestive heart failure): Status: Acute Reason for Visit Reason for Visit: Reason For Visit: chest pain Hospital Course Hospital Course: Patient was seen and evaluated in the emergency department noted to have concern for acute CHF exacerbation. Patient reported that he had moved to this area in 2016 and did not establish care with a primary care provider or voltage regulator assembler since that time. He stated that he had medications from his previous provider in [place] but ran out in October 2019. He has been off of medications for over 5 months and has not been taking any type of diuretic therapy. He reported that he has a history of coronary artery disease with a history of stent placement x2 along with congestive heart failure with an LVEF in the past of anywhere from 15 to 30%. He stated that he lost insurance therefore he ran out of medications and did not set up with a primary care provider. Patient was admitted to the hospital had echocardiogram performed which showed an LVEF of 15%. Cardiology was consulted and patient was started on Coreg, aspirin, statin, lisinopril, Aldactone. Patient continued to diurese well with IV Lasix and symptoms improved. Cardiology recommended close outpatient cardiology follow-up and will work to get patient set up with [facility] in the outpatient setting patient verbalized understanding and agreed with plan. On date of discharge patient stated that he was feeling back to his baseline he denied any concerns. He denied any chest pain or shortness of breath. Discussed with him plan for discharge to home and he agreed with plan Physical Exam Const: COMMON NORMALS: patient oriented x3 and alert GENERAL APPEARANCE: cooperative ORIENTATION/CONSCIOUSNESS: Yes awake, Yes oriented to person, Yes oriented to place and Yes oriented to time HENMT: COMMON NORMALS: normocephalic and atraumatic HEAD & SCALP: normocephalic and atraumatic Eye: COMMON NORMALS: Equal, round and reactive pupils present PUPIL: Yes Equal, round and reactive pupils present Neck/C-Spine: COMMON NORMALS: supple GENERAL: Yes normal visual inspection Resp: EFFORT & INSPECTION: Yes able to speak in complete sentences AUSCULTATION: no rhonchi and no wheezes Cardio: COMMON NORMALS: regular rate, regular rhythm and No murmurs present (Cardio) RATE: regular rate RHYTHM: regular rhythm GI: COMMON NORMALS: Soft to palpation and non-tender INSPECTION: No abdominal distension AUSCULTATION: Yes normoactive bowel sounds PALPATION: Yes Soft to palpation Extremity: COMMON NORMALS: no clubbing, cyanosis or edema and no calf tenderness Neuro: COMMON NORMALS: patient oriented x3, CN's II-XII intact bilaterally, moves all extremities and no focal motor deficits SENSORIUM/ORIENTATION: Yes alert, Yes oriented to person, Yes oriented to place and Yes oriented to time SPEECH: speech normal Psych: COMMON NORMALS: mental status grossly normal and cooperative Skin: COMMON NORMALS: no rashes or lesions noted GENERAL SKIN EXAM: no rashes or lesions noted Discharge Data Data Completed and Pending: Completed Studies During Hospitalization Category Date Time Status XR chest 1V naldo ble [id number] Urgent Exams 04/10/20 08:58 Completed CV echo complete* [id number] Routine Ultrasound 04/10/20 13:13 Completed US gall bladder 7 6705 Routine Ultrasound 04/10/20 13:13 Completed Pending at discharge Category Date Time Status Blood Culture Sta t Lab 04/10/20 09:05 Results Labs from last 24 hours 04/12/20 07:52 Sodium 140 Potassium 3.8 Chloride 105 Carbon Dioxide 24 Anion Gap 14.8 BUN 16 Creatinine 1.1 GFR Calculation 68.8 L Glucose 104 Calculated Osmolal ity 287 Calcium 9.1 Vitals: Last Vital Signs Temp 97.8 F 04/12/20 07:36 Pulse 74 04/12/20 07:36 Resp 16 04/12/20 07:36 BP 121/85 04/12/20 07:36 Pulse Ox 96 04/12/20 07:36 Discharge Plan Discharge Patient Disposition: Home, Self-Care Condition: Stable Prescriptions: New atorvastatin 40 mg Tablet 40 mg PO DAILY 30 Days Qty: 30 RF: 0 potassium chloride 10 mEq Tablet Extended Release 20 meq PO DAILY 30 Days Qty: 30 RF: 0 aspirin 81 mg Tablet,Delayed Release (Dr/Ec) 81 mg PO DAILY 30 Days Qty: 30 RF: 0 spironolactone 25 mg Tablet 12.5 mg PO DAILY 30 Days Qty: 30 RF: 0 carvedilol 3.125 mg Tablet 3.125 mg PO BID 30 Days Qty: 60 RF: 0 lisinopril 2.5 mg Tablet 2.5 mg PO DAILY 30 Days Qty: 30 RF: 0 furosemide [Lasix] 40 mg tablet 40 mg PO DAILY 30 Days Qty: 30 RF: 0 Continued Multiple Vitamins Tablet 1 tab PO DAILY RF: 0 L-Lysine 500 mg Tablet 1,000 mg PO Q6H PRN (Reason: FEVER BLISTER) RF: 0 BC Pain Relief 845-65 mg Powder In Packet 1 ea PO BID PRN (Reason: UNKNOWN) RF: 0 Vitamin D3 1 cap PO DAILY RF: 0 Discontinued Diurex 162.5-50 mg Tablet 1 tab PO DAILY RF: 0 Discharge Orders: Discharge Order (Routine); Ordered 04/12/20 Ordered By: Elvia Rowan Referrals: Jakub Carrero MD [Physician] - 4-7 days Leon Umaña MD [Physician] - 1 month Discharge Diet: Cardiac and Low Salt Discharge Activity: Increase activity as tolerated Patient Instructions: Spironolactone (By mouth), Lisinopril (By mouth), Furosemide (By mouth), Carvedilol (By mouth), Heart Failure (DC), CHF Stoplight Activity Restrictions/Additional Instructions: Needs to follow-up with cardiology clinic in 4 to 6 weeks Follow-up with primary care provider to establish care as soon as first appointment is available and 3 to 5 days New prescriptions provided of aspirin, atorvastatin, lisinopril, Coreg, Aldactone, Lasix and potassium supplementation. Monitor daily weights first thing in the morning, for any weight gain more than 2 to 3 pounds in a 24-hour. Call your physician for further instruction Strict intake and output monitoring as well as daily weights as noted above. Limit yourself to less than 1500 mL of fluid per 24-hour period. No more than 2 g of sodium per day Call your physician or present to the ED for any acute illness or concern Discharge Attestations Time Spent in Discharge Care*: greater than 30 min Quality Metrics Clinical Quality Measures During this hospital stay, did patient experience: None Coding Level of Care Code Acute Airplane Cleaner for Umberto Fwd Diagnoses Chronic kidney disease (CKD) N18.9 Nonischemic cardiomyopathy I42.8 Hyperbilirubinemia E80.6 Coronary artery disease I25.10 Systolic congestive heart failure I50.20 Acute exacerbation of CHF (congestive heart failure) I50.9
[2020-04-12 10:55] VITALS: BP 121/85; PULSE 74; RESP 16; TEMP 36.6; O2SAT 96
[2020-04-12 11:19] VITALS: BP 123/85; PULSE 73; RESP 16; TEMP 36.4; O2SAT 96
== END 2020-04-12 11:47 | disposition home or self-care (01) | DRG 292 ==
LOC: ER 11:13 → MEDSURG 11:51
PROVIDERS: Family Medicine; Admitting Provider Family Medicine; Visit Provider Family Medicine
DX: I50.23 Acute on chronic systolic (congestive) heart failure (principal); I42.8 Other cardiomyopathies; N18.9 Chronic kidney disease, unspecified; I25.10 Atherosclerotic heart disease of native coronary artery without angina pectoris; Z95.5 Presence of coronary angioplasty implant and graft; I25.2 Old myocardial infarction; Z91.120 Patient's intentional underdosing of medication regimen due to financial hardship; E80.6 Other disorders of bilirubin metabolism
CPT/HCPCS: 12345; 36415; 71045; 76705; 80048; 80053; 80061; 82247; 82248; 83605; 83880; 84443; 84484; 85025; 86705; 86706; 86709; 86803; 87040; 87340; 93005; 93306; 94640; 96372; 96375; 99283; G0378; J1650; J1940

== ENCOUNTER 2021-11-22 14:29 | Outpatient (CLI) | payer SELFPAY ==
--- NOTE | 2021-11-22 14:34 | USCV_ITS ---
Lalo Denson Age: 61 Gender: M : 1960 Exam Date: 11/22/2021 14:42 Ordering Phys: Jered Tejeda MD Technologist: Exam Location: [facility] [place] Indication: CHF BP: 140 / 80 HR: 43 Rhythm: Sinus Technical Quality: Adequate MEASUREMENTS (Male / Female) Normal Values 2D ECHO LV Diastolic Diameter PLAX 7.0 cm 4.2 - 5.9 / 3.9 - 5.3 cm LV Systolic Diameter PLAX 5.7 cm IVS Diastolic Thickness 1.2 cm 0.6 - 1.0 / 0.6 - 0.9 cm IVS Systolic Thickness 1.5 cm LVPW Diastolic Thickness 1.2 cm 0.6 - 1.0 / 0.6 - 0.9 cm LVPW Systolic Thickness 1.6 cm LVOT Diameter 2.4 cm LV Ejection Fraction 2D Teich 37.4 % LV Ejection Fraction MOD 2C 32.9 % LV Ejection Fraction 2C AL 34.0 % LA Diameter 5.1 cm LA Width 4.7 cm LA Height 7.5 cm RA Width 4.7 cm RA Height 5.9 cm Aorta at Sinotubular Diameter 3.2 cm M-MODE LV Diastolic Diameter MM 8.5 cm 4.2 - 5.9 / 3.9 - 5.3 cm LV Systolic Diameter MM 6.9 cm LV Ejection Fraction MM Teich 36.5 % IVS Diastolic Thickness MM 1.3 cm 0.6 - 1.0 / 0.6 - 0.9 cm IVS Systolic Thickness MM 1.3 cm LVPW Diastolic Thickness MM 1.2 cm 0.6 - 1.0 / 0.6 - 0.9 cm LVPW Systolic Thickness MM 1.9 cm RV Diastolic Diameter MM 1.4 cm Aortic Annulus Diameter 4.0 cm LA Ao Ratio MM 1.1 MV E Point Septal Separation 3.3 cm DOPPLER AV Peak Velocity 109.0 cm/s LVOT Peak Velocity 70.0 cm/s AV Area Cont Eq vti 2.6 cm squared AV Area Cont Eq pk 2.9 cm squared MV Area PHT 5.0 cm squared Mitral E to A Ratio 4.3 MV E' Velocity 56.0 cm/s Mitral E to MV E' Ratio 13.9 Mitral E to LV E' Lateral Ratio 11.7 Mitral E to LV E' Septal Ratio 17.1 TR Peak Velocity 170.0 cm/s TR Peak Gradient 11.6 mmHg TV Peak E Velocity 104.0 cm/s Right Atrial Pressure 3.0 mmHg Pulmonary Artery Systolic Pressu 14.6 mmHg FINDINGS Left Ventricle Moderately increased left ventricular cavity size. Severely decreased left ventricular systolic function. Left ventricular ejection fraction is estimated at 20 %. Grade III/IV diastolic dysfunction (restrictive filling pattern), severely elevated filling pressures. Right Ventricle The right ventricle is normal in size and function. Right Atrium The right atrium is normal in size. Left Atrium The left atrium is normal in size. Mitral Valve Moderately thickened mitral valve. No mitral valve stenosis. Moderate mitral valve regurgitation. Aortic Valve Moderate aortic valve calcification. No aortic valve stenosis. Trace aortic valve regurgitation. Tricuspid Valve Structurally normal tricuspid valve without significant stenosis or regurgitation. Pulmonary artery systolic pressure is normal. Pulmonic Valve Structurally normal pulmonic valve without significant stenosis. There is no pulmonic regurgitation. Pericardium Normal pericardium without effusion. Aorta Normal ascending aorta dimension. CONCLUSIONS 1-Moderately increased left ventricular cavity size. Severely decreased left ventricular systolic function. Left ventricular ejection fraction is estimated at 25 %. Grade III/IV diastolic dysfunction (restrictive filling pattern), severely elevated filling pressures. 2-Moderately thickened mitral valve. No mitral valve stenosis. Moderate mitral valve regurgitation. 3-Moderate aortic valve calcification. No aortic valve stenosis. Trace aortic valve regurgitation. 4-There is no pericardial effusion. 5-Pulmonary artery systolic pressure is within normal limits. 6-Right atrial pressure is around 10 mm of mercury. 7-No significant change since the prior echocardiogram study of 04/10/2020. Kalyn Soriano MD (Electronically Signed) Final Date: 22 November 2021 19:25 S
== END 2021-11-22 14:30 | disposition home or self-care (01) ==
LOC: RAD 14:32
PROVIDERS: PCP Family Medicine; Visit Provider Family Medicine
DX: I50.9 Heart failure, unspecified (principal); I08.0 Rheumatic disorders of both mitral and aortic valves
CPT/HCPCS: 93306

== ENCOUNTER 2023-01-23 15:03 | Emergency (ER) | payer SELFPAY ==
[2023-01-23 15:13] VITALS: BP 126/92; PULSE 103; RESP 18; TEMP 36.6; O2SAT 94
--- NOTE | 2023-01-23 15:20 | XR_ITS ---
WS: [id number] Portable AP upright chest, 01/23/2023 Clinical Data: sob Comparison: Portable chest, 04/10/2020 Findings: No nodules, masses or effusions are seen. The heart remains enlarged. The pulmonary vascula rity is not increased. No pneumonia or pneumothorax is seen. XR/XR chest 1V portable [id number] Impression: No change in cardiomegaly.
[2023-01-23 15:39] VITALS: BP 118/82; PULSE 110; RESP 20; O2SAT 98
--- NOTE | 2023-01-23 15:51 | W.ED.SOB ---
HPI - SOB/Dyspnea General: Chief Complaint: Shortness of Breath/Dyspnea Stated Complaint: feet swelling and chest pain Time Seen by Provider: 01/23/23 15:20 Source: patient Mode of arrival: ambulatory History of Present Illness: HPI Narrative: 62-year-old male with a history of nonischemic cardiomyopathy presents emergency room complaining of worsening swelling of his lower extremities and distention of his abdomen. No fever sweats chills vomiting or diarrhea no abdominal pain no dysuria urgency or frequency. In March 2020 patient had a echocardiogram with an ejection fraction of 15%. More recently November 2021 he had an echo that showed an ejection fraction of 20-25% with grade 3/4 diastolic dysfunction. He has noticed some moderate orthopnea. No chest pain most notably has had an increase in abdominal distention. MD elicited complaint: shortness of breath Pertinent past history: congestive heart failure Timing: constant Severity: mild Exacerbating factors: lying flat and exertion Relieving factors: rest Known history of: congestive heart failure Associated symptoms: Reports orthopnea; Deny abdominal pain, chest congestion, chest pain, cough, diaphoresis, dizziness, extremity pain, fever(s), hemoptysis, lightheadedness, myalgias, nausea, palpitations, paresthesias, polydipsia, polyuria, rash, sense of impending doom, syncope or vomiting Review of Systems Const: Denies: fever(s), chills, fatigue, malaise or diaphoresis ENMT: Denies: throat pain, ear or mastoid pain, nasal discharge or nasal congestion Card: Reports: orthopnea; Denies: chest pain, palpitations, lightheadedness or syncope Resp: Reports: dyspnea; Denies: productive cough, non-productive cough, hemoptysis or chest congestion GI: Denies: abdominal pain, nausea or vomiting : Denies: flank pain, dysuria, urinary frequency or urinary urgency Musc: Denies: extremity pain Skin/Breast: Denies: rash or pruritus Neuro: Denies: dizziness Endo: Denies: polyuria or polydipsia PFSH ED PFSH: Medical History Chronic kidney disease (CKD) Coronary artery disease History of coronary angiogram With stent placement x2 in February 2014. This was performed at [facility] in [place] Nonischemic cardiomyopathy Systolic congestive heart failure Family History Father CAD (coronary artery disease) Congestive heart failure Mother Cirrhosis Kandi's disease Social History Smoking and tobacco status: never smoked Alcohol intake: current Alcohol intake frequency: holidays/special occasions only Household members: spouse Marital status: Physical Exam Const: COMMON NORMALS: no acute distress GENERAL APPEARANCE: cooperative and comfortable ORIENTATION/CONSCIOUSNESS: Yes awake, Yes oriented to person, Yes oriented to place and Yes oriented to time HENMT: COMMON NORMALS: normocephalic, atraumatic and hearing grossly normal bilaterally HEAD & SCALP: normocephalic and atraumatic Resp: COMMON NORMALS: normal respiratory effort, No retractions, No use of accessory muscles and clear to auscultation bilaterally AUSCULTATION: clear to auscultation bilaterally Cardio: COMMON NORMALS: regular rate, regular rhythm and No murmurs present (Cardio) RATE: regular rate RHYTHM: regular rhythm GI: COMMON NORMALS: Soft to palpation and No hepatosplenomegaly present INSPECTION: Yes abdominal distension AUSCULTATION: Yes normoactive bowel sounds PALPATION: Yes Soft to palpation, No Tenderness to palpation present (GI), No Guarding due to palpation present (GI) and Yes No hepatosplenomegaly present PERCUSSION: dullness to percussion Extremity: COMMON NORMALS: normal to inspection, capillary refill normal, no clubbing, cyanosis or edema, no calf tenderness and no pedal edema Neuro: SENSORIUM/ORIENTATION: Yes oriented to person, Yes oriented to place and Yes oriented to time Skin: COMMON NORMALS: no rashes or lesions noted GENERAL SKIN EXAM: no rashes or lesions noted Course Vital Signs: Vital signs: Vital Signs Temperature 97.9 F 01/23/23 15:13 Pulse Rate 98 01/23/23 17:43 Respiratory Rate 18 01/23/23 17:43 Blood Pressure 130/91 01/23/23 17:43 Pulse Oximetry 94 01/23/23 17:43 Oxygen Delivery Me thod 01/23/23 17:14 MDM - SOB/Dyspnea Medical Decision Making Patient has significant cardiomyopathy with reduced ejection fraction. 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 Could also evaluate whether or not he would be a candidate for paracentesis however given the underlying causes would recur relatively quickly. Medical Records I reviewed the patient's medical records. Lab Data I reviewed the patient's lab results. 01/23/23 16:13 01/23/23 16:13 Labs/Radiology: Radiology Impressions Chest X-Ray 01/23/23 15:20 Impression: No change in cardiomegaly. Laboratory Results WBC 9.0 10^3/uL (4.0-10.0) 01/23/23 16:13 RBC 4.99 10^6/uL (4.1-5.3) 01/23/23 16:13 Hgb 13.2 g/dL (11.7-16.6) 01/23/23 16:13 Hct 43.9 % (42.0-52.0) 01/23/23 16:13 MCV 88.0 fl (80-94) 01/23/23 16:13 MCH 26.5 pg (28.0-34.0) L 01/23/23 16:13 MCHC 30.1 g/dL (30.0-36.0) 01/23/23 16:13 RDW 16.3 % (12.1-15.1) H 01/23/23 16:13 Plt Count 309 10^3/cmm (130-400) 01/23/23 16:13 MPV 11.3 fL (7.4-10.4) H 01/23/23 16:13 Neut % (Auto) 76.0 % 01/23/23 16:13 Lymph % (Auto) 14.2 % 01/23/23 16:13 [place] % (Auto) 6.8 % 01/23/23 16:13 Eos % (Auto) 2.2 % 01/23/23 16:13 Baso % (Auto) 0.6 % 01/23/23 16:13 Neut # (Auto) 6.85 10^3/uL (1.8-7.7) 01/23/23 16:13 Lymph # (Auto) 1.3 10^3/uL (0.8-4.8) 01/23/23 16:13 [place] # (Auto) 0.6 10^3/uL (0.2-0.9) 01/23/23 16:13 Eos # (Auto) 0.2 10^3/uL (0.0-0.8) 01/23/23 16:13 Baso # (Auto) 0.1 10^3/uL (0.0-0.1) 01/23/23 16:13 Nucleated RBC % (auto) 0 % 01/23/23 16:13 Nucleated RBCs # 0.0 /100WBC 01/23/23 16:13 Sodium 142 mmol/L (136-145) 01/23/23 16:13 Potassium 4.3 mmol/L (3.5-5.1) 01/23/23 16:13 Chloride 102 mmol/L (98-107) 01/23/23 16:13 Carbon Dioxide 26 mmol/L (22-29) 01/23/23 16:13 Anion Gap 18.3 (5-19) 01/23/23 16:13 BUN 22 mg/dL (8-23) 01/23/23 16:13 Creatinine 1.8 mg/dL (0.7-1.2) H 01/23/23 16:13 GFR Calculation 38.7 mL/min (90-130) L 01/23/23 16:13 Glucose 126 mg/dL (65-115) H 01/23/23 16:13 Calculated Osmolality 299 mOsm/kg (285-295) H 01/23/23 16:13 Calcium 9.7 mg/dL (8.5-10.5) 01/23/23 16:13 Total Bilirubin 3.0 mg/dL (0.15-1.2) H 01/23/23 16:13 AST 17 U/L (0-40) 01/23/23 16:13 ALT 16 U/L (0-41) 01/23/23 16:13 Alkaline Phosphatase 107 U/L (40-130) 01/23/23 16:13 Troponin T Baseline 38 ng/L (0-15) H 01/23/23 16:13 NT-Pro-B Natriuret Pep 5224 pg/mL (0-125) H 01/23/23 16:13 Total Protein 6.6 g/dL (6.6-8.7) 01/23/23 16:13 Albumin 4.2 g/dL (3.5-5.2) 01/23/23 16:13 Globulin 2.4 g/dL (1.3-4.6) 01/23/23 16:13 Discharge Plan Discharge Patient Disposition: Home Clinical Impression: Nonischemic cardiomyopathy, Systolic congestive heart failure, Chronic kidney disease (CKD) Condition: Stable Prescriptions: New spironolactone 25 mg tablet 12.5 mg PO BID Qty: 30 0RF Changed furosemide 40 mg tablet 60 mg PO DAILY Qty: 60 0RF Rx Instructions: Increase to 60 mg daily for 3 days then resume 40 mg daily. No Action BC Pain Relief 845-65 mg Powder In Packet 1 ea PO BID PRN (Reason: UNKNOWN) CoQ-10 100 mg Capsule 100 mg PO DAILY L-Arginine [employer] 1,000 mg-16.6 mcg-66.6 mcg Tablet 1 tab PO DAILY potassium chloride 10 mEq capsule, extended release 10 meq PO DAILY Discharge Orders: Discharge ED (Routine); Ordered 01/23/23 Ordered By: Roni Nesbitt Referrals: Jered Tejeda MD [Primary Care Provider] - Discharge Diet: Cardiac and Low Salt Discharge Activity: Increase activity as tolerated Patient Instructions: Opioid Safety, Pain Management Activity Restrictions/Additional Instructions: You were seen today for nonischemic cardiomyopathy with chronic systolic congestive heart failure. Recommend that you start on spironolactone 12.5 mg twice daily for the next 5 days. Increase your Lasix to 60 mg daily for the next 3 days. Case management will make arrangements for follow-up with cardiology clinic. Coding Level of Care Code ED Ergonomics Engineer for Umberto Rose
--- NOTE | 2023-01-23 16:06 | PC.PHAR ---
PT STS THESE ARE THE ONLY MEDICATIONS HE IS CURRENTLY TAKING CAN NOT REMEMBER TAKING ANY OF THE MEDICATIONS THAT WERE REMOVED FROM HOME MED LIST
--- NOTE | 2023-01-23 16:10 | P.HP_ITS ---
Providers/Chief Complaint Primary Care Provider: Jered Tejeda MD Chief Complaint: feet swelling and chest pain History of Present Illness Lalo Denson is a 62 year old male Medications/Allergies Home Medications Medication Instructions Recorded Confirmed Last Taken Type aspirin-caffeine 845 mg-65 mg oral 1 ea PO BID PRN UNKNOWN 04/10/20 01/23/23 04/09/20 10:00 History powder packet (BC Pain Relief) arginine 1,000 mg-B12 16.6 1 tab PO DAILY 01/23/23 01/23/23 01/23/23 History mcg-folic acid 66.6 mcg-B6 3.3 mg tablet (L-Arginine ResQU) coenzyme Q10 100 mg capsule 100 mg PO DAILY 01/23/23 01/23/23 01/23/23 History (CoQ-10) furosemide 40 mg tablet 40 mg PO DAILY 01/23/23 01/23/23 01/23/23 History potassium chloride 10 mEq 10 meq PO DAILY 01/23/23 01/23/23 01/23/23 History capsule,extended release Allergies Allergy/AdvReac Type Severity Reaction Status Date / Time clindamycin Allergy ALGY-Rash Verified 01/23/23 16:06 Penicillins Allergy ALGY-Hives Verified 01/23/23 16:06 Sulfa (Sulfonamide Allergy ALGY-Rash Verified 01/23/23 16:06 Antibiotics) PFSH Acute PFSH: Medical History Chronic kidney disease (CKD) Coronary artery disease History of coronary angiogram With stent placement x2 in February 2014. This was performed at [facility] in [place] Nonischemic cardiomyopathy Systolic congestive heart failure Family History Father CAD (coronary artery disease) Congestive heart failure Mother Cirrhosis Kandi's disease Social History Smoking and tobacco status: never smoked Alcohol intake: current Alcohol intake frequency: holidays/special occasions only Household members: spouse Marital status: Vitals/I&O/Wt Last Vital Signs Temp 97.9 F 01/23/23 15:13 Pulse 110 H 01/23/23 15:39 Resp 20 H 01/23/23 15:39 BP 118/82 01/23/23 15:39 Pulse Ox 98 01/23/23 15:39 O2 Del Method 01/23/23 15:39 Weight last 48 hrs Weight 120.202 kg Coding Level of Care Code Acute Code for Chg Fwd
[2023-01-23 16:31] LABS: Basophils # 0.1 10^3/uL (0.0-0.1); Basophils % 0.6 %; Eosinophils # 0.2 10^3/uL (0.0-0.8); Eosinophils % 2.2 %; Hematocrit 43.9 % (42.0-52.0); Hemoglobin 13.2 g/dL (11.7-16.6); Lymphocytes # 1.3 10^3/uL (0.8-4.8); Lymphocytes % 14.2 %; Mean Corpuscular HGB Conc 30.1 g/dL (30.0-36.0); Mean Corpuscular Hemoglobin 26.5 pg (28.0-34.0); Mean Platelet Volume 11.3 fL (7.4-10.4); Monocytes # 0.6 10^3/uL (0.2-0.9); Monocytes % 6.8 %; Neutrophils # 6.85 10^3/uL (1.8-7.7); Nucleated Red Blood Cells % 0 %; Platelet Count 309 10^3/cmm (130-400); Red Blood Count 4.99 10^6/uL (4.1-5.3); Red Cell Distribution Width 16.3 % (12.1-15.1)
[2023-01-23 16:37] VITALS: BP 117/87; PULSE 95; RESP 20; O2SAT 94
[2023-01-23 16:59] LABS: Troponin(5th) Baseline 38 ng/L (0-15)
[2023-01-23 17:08] LABS: Alanine Aminotransferase 16 U/L (0-41); Albumin Level 4.2 g/dL (3.5-5.2); Alkaline Phosphatase 107 U/L (40-130); Anion Gap 18.3 (5-19); Aspartate Amino Transferase 17 U/L (0-40); Blood Urea Nitrogen 22 mg/dL (8-23); Calcium 9.7 mg/dL (8.5-10.5); Carbon Dioxide 26 mmol/L (22-29); Chloride 102 mmol/L (98-107); Globulin 2.4 g/dL (1.3-4.6); Glomerular Filtration Rate 38.7 mL/min (90-130); Glucose 126 mg/dL (65-115); NT Pro B Type Natriuretic Pept 5224 pg/mL (0-125); Osmolality Calculated 299 mOsm/kg (285-295); Potassium 4.3 mmol/L (3.5-5.1); Sodium 142 mmol/L (136-145); Total Protein 6.6 g/dL (6.6-8.7)
[2023-01-23 17:14] VITALS: BP 133/86; PULSE 96; RESP 18; O2SAT 96
--- NOTE | 2023-01-23 17:24 | ECG_ITS ---
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 Measurements Intervals [place] Rate: 101 P: 40 [place]: 218 QRS: 269 QRSD: 128 T: 66 QT: 351 QTc: 457 Interpretive Statements SINUS TACHYCARDIA WITH FIRST DEGREE AV BLOCK POSSIBLE LEFT ATRIAL ENLARGEMENT [-0.1mV P-WAVE IN V1/V2] POSSIBLE RIGHT VENTRICULAR HYPERTROPHY [SOME/ALL OF: PROMINENT R IN V1, LATE TRANSITION, RAD, MAGDALENE, SSS] Compared to ECG 04/10/2020 15:13:30 Sinus rhythm no longer present Indeterminate axis no longer present Intraventricular conduction delay no longer present Electronically Signed On 01-25-2023 23:05:10 CDT by Pedrito Hillman M.D. [email or web address]
[2023-01-23 17:43] VITALS: BP 130/91; PULSE 98; RESP 18; O2SAT 94
== END 2023-01-23 17:42 | disposition home or self-care (01) ==
PROVIDERS: Physician Assistant; Emergency Provider Family Medicine; PCP Family Medicine
DX: I42.8 Other cardiomyopathies (principal); I50.20 Unspecified systolic (congestive) heart failure; N18.9 Chronic kidney disease, unspecified; I25.10 Atherosclerotic heart disease of native coronary artery without angina pectoris; Z95.5 Presence of coronary angioplasty implant and graft
CPT/HCPCS: 36415; 71045; 80053; 83880; 84484; 85025; 93005; 99285